=== PATIENT | male | born 1985 | race Asian ===

== ENCOUNTER 2017-11-30 20:14 | Emergency (ER) | payer BC ==
[~2017-11-30] VITALS: Ht 177.8 cm; Wt 73.9 kg
[2017-11-30 20:28] VITALS: BP 155/97; Ht 177.8 cm; Wt 73.9 kg
== END 2017-11-30 20:42 | disposition left against medical advice (07) ==
LOC: ED 20:14
DX: Z53.21 Procedure and treatment not carried out due to patient leaving prior to being seen by health care provider (principal)